=== PATIENT | male | born 1955 | race Hispanic/Latino ===

== ENCOUNTER 2022-10-14 16:05 | Emergency (ER) | payer MEDICARE ==
[~2022-10-14] VITALS: Ht 172.7 cm; Wt 83.0 kg
[2022-10-14 16:59] LABS: BASOPHILS % (AUTO) 0.5 % (0.0-5.0); EOSINOPHILS % (AUTO) 2.1 % (0.0-8.0); HEMATOCRIT 45.1 % (42-54); MEAN CORPUSCULAR HEMOGLOBIN 29.3 pg (27.0-33.0); MEAN CORPUSCULAR HGB CONC 35.7 g/dL (32.0-36.0); MONOCYTES % (AUTO) 6.9 % (3.0-13.0); NEUTROPHILS % (AUTO) 69.8 % (40.0-77.0); PLATELET COUNT (AUTO) 216 K/uL (130-400); RED CELL DISTRIBUTION WIDTH 12.8 % (11.0-15.5); WHITE BLOOD COUNT (AUTO) 8.9 K/uL (4.8-10.8)
[2022-10-14 17:12] LABS: CREATININE 0.9 mg/dL (0.5-1.5)
[2022-10-14 17:23] LABS: ALBUMIN 4.3 g/dL (3.5-5.0); TOTAL PROTEIN, SERUM 8.4 g/dL (6.0-8.3)
[2022-10-14 22:01] VITALS: BP 122/72
== END 2022-10-14 22:45 | disposition home or self-care (01) ==
LOC: EDH 16:05
DX: R07.89 Other chest pain (principal); E11.9 Type 2 diabetes mellitus without complications; E78.00 Pure hypercholesterolemia, unspecified; I10 Essential (primary) hypertension; Z79.899 Other long term (current) drug therapy
CPT/HCPCS: 36415; 71045; 80053; 84484; 85025; 85378; 93005

== ENCOUNTER → 2023-01-09 | Outpatient (CLI) | payer MEDICARE | END | disposition home or self-care (01) | LOC: RAH 09:20 | DX: R16.1 Splenomegaly, not elsewhere classified (principal); R11.0 Nausea; R10.13 Epigastric pain | CPT/HCPCS: 76700 ==

== ENCOUNTER → 2023-02-02 | Outpatient (CLI) | payer MEDICARE ==
[~2023-02-02] MED LIST: REGADENOSON 0.4 MG/5 ML PF SYG IVP ONE
== END | disposition home or self-care (01) ==
LOC: SHCH 08:02
PROVIDERS: ATTEND Internal Medicine
DX: R94.31 Abnormal electrocardiogram [ECG] [EKG] (principal)
CPT/HCPCS: 78452; 96374; 93017; J2785; A9500 ×2

== ENCOUNTER → 2023-02-19 | Outpatient (CLI) | payer MEDICARE | END | disposition home or self-care (01) | LOC: SHCH 14:34 | PROVIDERS: ATTEND Internal Medicine | DX: I35.8 Other nonrheumatic aortic valve disorders (principal); R07.9 Chest pain, unspecified | CPT/HCPCS: 93306 ==

== ENCOUNTER 2023-03-06 10:48 | Day surgery (SDC) | payer MEDICARE ==
[2023-03-04 10:24] LABS: BASOPHILS % (AUTO) 0.5 % (0.0-5.0); HEMATOCRIT 41.4 % (42-54); LYMPHOCYTES % (AUTO) 23.4 % (21.0-51.0); MEAN CORPUSCULAR HEMOGLOBIN 30.2 pg (27.0-33.0); MEAN CORPUSCULAR HGB CONC 35.7 g/dL (32.0-36.0); MEAN CORPUSCULAR VOLUME 84.5 fL (79-99); NEUTROPHILS % (AUTO) 63.3 % (40.0-77.0); PLATELET COUNT (AUTO) 191 K/uL (130-400); WHITE BLOOD COUNT (AUTO) 6.6 K/uL (4.8-10.8)
[2023-03-04 10:34] LABS: POTASSIUM 4.6 mmol/L (3.5-5.1)
[2023-03-04 10:37] LABS: INR 1.05 (0.85-1.15); PROTHROMBIN TIME 11.4 SEC (9.6-11.6)
[2023-03-04 10:46] VITALS: BP 132/71
[2023-03-04 10:50] LABS: PARTIAL THROMBOPLASTIN TIME 27.9 SEC (26.3-35.5)
[2023-03-04 11:07] LABS: B-TYPE NATRIURETIC PEPTIDE 36 pg/mL (0-100)
[~2023-03-06] VITALS: Ht 170.2 cm; Wt 81.4 kg
[2023-03-06] VITALS (9 sets, daily range): BP systolic 110–138; BP diastolic 60–73
[~2023-03-06 10:48] MED LIST changes: +ATOR20TA65 PO; +GLIP10TA9 PO; +LISI10TA24 PO; +LORA10TA7 PO; +METF-446 PO; +NITR0.4T50 SL; +ONDA-104 SL; -REGADENOSON 0.4 MG/5 ML PF SYG IVP ONE; +SUCR1TAB2 PO
[2023-03-06] MEDS ORDERED: 0.9%NACL 1000ML 1,000 ML IV ONE ×2 (10:52→11:07)
[2023-03-06] MEDS ORDERED: IBUP-2784 PO (11:47)
[2023-03-06] MEDS ORDERED: AEC81 PO (11:47)
[2023-03-06] MEDS ORDERED: FENTANYL CITRATE PF 50 MCG/1 ML 2ML VIAL ONE (13:28)
[2023-03-06] MEDS ORDERED: LIDOCAINE HCL 400MG/20ML VIAL ONE (13:28)
[2023-03-06] MEDS ORDERED: HEPARIN 10,000 UNIT/10ML (1,000 UNIT/ML) VIAL ONE (13:29)
[2023-03-06] MEDS ORDERED: NITROGLYCERIN 50MG VIAL ONE (13:29)
[2023-03-06] MEDS ORDERED: VERAPAMIL HCL 2.5 MG/ML VIAL ONE (13:29)
[2023-03-06] MEDS ORDERED: IOHEXOL 350 MG/ML 100ML INFUS..BTL IV ONE (13:29)
[2023-03-06] MEDS ORDERED: MIDAZOLAM HCL 1 MG/ML 2ML VIAL ONE (13:29)
[2023-03-06] MEDS ORDERED: ASPIRIN 81MG CHEW TAB ONE (15:23)
[2023-03-06] MEDS ORDERED: TICAGRELOR 90 MG TABLET ONE (15:23)
[2023-03-06] MEDS ORDERED: ACETAMINOPHEN WITH CODEINE 1 TAB TAB PO PRN (15:30)
[2023-03-06] MEDS ORDERED: 0.9%NACL 1000ML 1,000 ML IV SCH (15:30)
[2023-03-06] MEDS ORDERED: DEXTROSE 50%-WATER 50 ML DISP.SYRIN IV PRN (15:30)
[2023-03-06] MEDS ORDERED: GLUCAGON 1MG KIT 1 MG ML IM PRN (15:30)
== END 2023-03-06 18:30 | disposition home or self-care (01) ==
LOC: DAH 10:48
PROVIDERS: ATTEND Internal Medicine
DX: I25.119 Atherosclerotic heart disease of native coronary artery with unspecified angina pectoris (principal); R94.31 Abnormal electrocardiogram [ECG] [EKG]; I10 Essential (primary) hypertension; E11.9 Type 2 diabetes mellitus without complications; E78.5 Hyperlipidemia, unspecified; I25.2 Old myocardial infarction; Z79.01 Long term (current) use of anticoagulants; Z79.82 Long term (current) use of aspirin; Z79.84 Long term (current) use of oral hypoglycemic drugs; Z79.899 Other long term (current) drug therapy; Z82.49 Family history of ischemic heart disease and other diseases of the circulatory system; Z83.3 Family history of diabetes mellitus; Z98.890 Other specified postprocedural states
CPT/HCPCS: 80048; 83880; 85025; 85610; 85730; 36415; 71045; 93005; 93571; 82948 ×2; 93458; C9600; C1769 ×3; C1887 ×2; C1894 ×3; C1760; A4649; C1874; C1725; J3010; J3490 ×3; J7030 ×2; J1644 ×3; J2250; Q9967; A4215; A4222; A4221; A4663; A4216; A4606; Q9965 ×2; A4223 ×3; 99156; 99157

== ENCOUNTER → 2024-01-13 | Outpatient (CLI) | payer OTHER, MEDICARE ==
[~2024-01-13] MED LIST changes: +AEC81 PO; +CEPH500B PO; +IBUP-2784 PO
== END | disposition home or self-care (01) ==
LOC: RAH 10:51
PROVIDERS: ATTEND Internal Medicine
DX: R41.3 Other amnesia (principal)
CPT/HCPCS: 70551

== ENCOUNTER 2024-06-12 18:43 | Emergency (ER) | payer OTHER, MEDICARE ==
[~2024-06-12] VITALS: Ht 170.2 cm; Wt 81.6 kg
[2024-06-12] MEDS: dexaMETHasone SOD PHOSPHATE 4 MG/ML 1ML VIAL IM ONE (19:40)
[2024-06-12] MEDS: prednisoLONE 15 MG/5 ML SOLN PO STA (19:40)
[2024-06-12 20:52] VITALS: BP 139/76; PULSE 68; RESP 18; TEMP 98.8; O2SAT 98
== END 2024-06-12 20:56 | disposition home or self-care (01) ==
LOC: MERGE 18:43 → EDH 18:43
DX: R13.10 Dysphagia, unspecified (principal); E11.9 Type 2 diabetes mellitus without complications; E78.00 Pure hypercholesterolemia, unspecified; I10 Essential (primary) hypertension
CPT/HCPCS: 99283; 70360; 96372; J1100

== ENCOUNTER → 2025-03-13 | Outpatient (CLI) | payer MEDICARE ==
[~2025-03-13] MED LIST changes: +GLIP10TA16 PO; -GLIP10TA9 PO
--- NOTE | 2025-03-14 05:31 | HMCIMG ---
EXAM: CR Cervical spine, 4 views. CLINICAL HISTORY: Cervicalgia. COMPARISON: None provided. FINDINGS: Mild straightening of the expected cervical lordosis reflects paraspinal muscle spasm. Mild osteopenia. Mild spondylosis. Mild degenerative disc space narrowing at C4-C5 and C6-C7. The remaining disc spaces are maintained. Normal vertebral body heights. No acute fracture. The prevertebral soft tissues are within normal limits. The included lungs are clear. IMPRESSION: No acute bony abnormality is evident. Mild straightening of the expected cervical lordosis reflects paraspinal muscle spasm. Mild osteopenia. Mild spondylosis. Mild degenerative disc space narrowing at C4-C5 and C6-C7. /[place]
--- NOTE | 2025-03-14 05:33 | HMCIMG ---
EXAM: CR Thoracic Spine, 2 views. CLINICAL HISTORY: Pain. COMPARISON: None provided. FINDINGS: Mild dextrocurvature of the thoracic spine. Mild osteopenia. Mild spondylosis and degenerative disc space narrowing at multiple levels. Normal vertebral body heights. No acute fracture. Soft tissues are within normal limits. IMPRESSION: Mild dextrocurvature of the thoracic spine. Mild osteopenia. Mild spondylosis and degenerative disc space narrowing at multiple levels. /[place]
--- NOTE | 2025-03-14 05:35 | HMCIMG ---
EXAM: CR Lumbar Spine, 3 views. CLINICAL HISTORY: Pain. COMPARISON: None provided. FINDINGS: Lumbar alignment is within normal limits. Mild osteopenia. Mild to moderate spondylosis. The intervertebral disc spaces are maintained. Normal vertebral body heights. No acute fracture. Atherosclerotic vascular calcifications. IMPRESSION: No acute bony abnormality is evident. Mild osteopenia. Mild to moderate spondylosis. /[place]
== END | disposition home or self-care (01) ==
LOC: RAH 15:10
DX: M47.815 Spondylosis without myelopathy or radiculopathy, thoracolumbar region (principal); M47.812 Spondylosis without myelopathy or radiculopathy, cervical region; M48.03 Spinal stenosis, cervicothoracic region; M43.8X4 Other specified deforming dorsopathies, thoracic region; M85.88 Other specified disorders of bone density and structure, other site; M54.2 Cervicalgia; M54.6 Pain in thoracic spine; G89.29 Other chronic pain; M54.40 Lumbago with sciatica, unspecified side; I70.90 Unspecified atherosclerosis
CPT/HCPCS: 72040; 72070; 72100

== ENCOUNTER → 2025-03-15 | Outpatient (CLI) | payer MEDICARE ==
[2025-03-15 07:51] LABS: IMMATURE GRANULOCYTE ABSOLUTE 0.09 K/uL (0-1); NUCLEATED RED BLOOD CELLS 0.0 % (0.0-0.19); PLATELET COUNT (AUTO) 208 K/uL (130-400); RED BLOOD CELL COUNT(AUTO) 4.74 MIL/uL (4.50-6.20); RED CELL DISTRIBUTION WIDTH 12.9 % (11.0-15.5); WHITE BLOOD COUNT (AUTO) 7.5 K/uL (4.8-10.8)
[2025-03-15 08:05] LABS: APPEARANCE,URINE CLEAR (CLEAR); GLUCOSE, URINE (UA) NEGATIVE (NEGATIVE); LEUKOCYTE ESTERASE ,URINE NEGATIVE Leu/uL (NEGATIVE); NITRATE,URINE NEGATIVE (NEGATIVE); OCCULT BLOOD,URINE NEGATIVE (NEGATIVE)
[2025-03-15 08:16] LABS: ADD UA MICROSCOPIC YES
[2025-03-15 08:23] LABS: ASPARTATE AMINOTRANSFERASE 17.0 U/L (10-37); CREATININE 0.9 mg/dL (0.5-1.3); GLOMERULAR FILTR. RATE CALC 91.0 mL/min (>90); GLUCOSE,RANDOM 139.0 mg/dL (70-105); LDL DIRECT 57.0 mg/dL (0-99); SODIUM SERUM 143.0 mmol/L (136-145); TOTAL PROTEIN, SERUM 7.6 g/dL (6.0-8.3); UREA NITROGEN, BLOOD 15.0 mg/dL (7-18)
== END | disposition home or self-care (01) ==
LOC: LAB 07:20
DX: E11.9 Type 2 diabetes mellitus without complications (principal); Z79.899 Other long term (current) drug therapy
CPT/HCPCS: 36415; 80053; 80061; 81001; 82043; 82270; 82570; 83036; 84153; 84154; 84439; 84443; 85025

== ENCOUNTER → 2025-06-21 | Outpatient (CLI) | payer MEDICARE, MEDICAID ==
--- NOTE | 2025-06-21 17:19 | HMCIMG ---
Exam: Bilateral lower extremity arterial ultrasound. Technique: Static grayscale and Doppler images were obtained History: Peripheral vascular disease Comparison: None Right side: CONFIGURATION TECHNICIAN systolic: 70 cm/s Waveform: Triphasic SFA proximal systolic: 70 cm/s Waveform: Triphasic SFA mid systolic: 79 cm/s Waveform: Triphasic SFA distal systolic: 64 cm/s Waveform: Triphasic Popliteal artery systolic: 65/73 cm/s Waveform triphasic Anterior tibial artery systolic: 54 cm/s Waveform triphasic Posterior tibial artery systolic 68 cm/s Waveform biphasic DPA: 74 cm/s. Waveform: Triphasic Plaque formation: Scattered plaque formation Left side: CONFIGURATION TECHNICIAN systolic: 126 cm/s Waveform: Triphasic SFA proximal systolic: 81 cm/s Waveform: Triphasic SFA mid systolic: 82 cm/s Waveform: Triphasic SFA distal systolic: 69 cm/s Waveform: Triphasic Popliteal artery systolic: 132/94 cm/s Waveform triphasic Anterior tibial artery systolic: 66 cm/s Waveform triphasic Posterior tibial artery systolic 50 cm/s Waveform biphasic DPA: 62 cm/s. Waveform: Triphasic Plaque formation: Scattered plaque formation IMPRESSION: 1. No acute findings. 2. Scattered plaque formation in bilateral lower extremity arteries. 3. Normal arterial flow velocities and waveforms bilaterally, except for biphasic waveforms in bilateral posterior tibial arteries. /[place]
== END | disposition home or self-care (01) ==
LOC: RAH 14:23
PROVIDERS: ATTEND Internal Medicine
DX: I70.203 Unspecified atherosclerosis of native arteries of extremities, bilateral legs (principal)
CPT/HCPCS: 93925